=== PATIENT | female | born 1970 | race African-American/Black ===

== ENCOUNTER 2021-12-16 05:25 | Emergency (ER) | payer MEDICARE, MEDICAID ==
[~2021-12-16] VITALS: Ht 165.1 cm; Wt 62.0 kg
[2021-12-16] MEDS ORDERED: MORPHINE SULFATE 10 MG/ML CPJ IM ONE (06:00)
[2021-12-16] MEDS ORDERED: ONDANSETRON 4MG ODT PO ONE (06:00)
[2021-12-16] MEDS ORDERED: DIAZEPAM 5 MG TABLET PO ONE (06:00)
[2021-12-16] MEDS ORDERED: METH-773 MT (07:30)
[2021-12-16 08:56] VITALS: BP 152/85
== END 2021-12-16 10:40 | disposition home or self-care (01) ==
LOC: ER 05:25
DX: M54.12 Radiculopathy, cervical region (principal); I10 Essential (primary) hypertension; Z88.8 Allergy status to other drugs, medicaments and biological substances
CPT/HCPCS: 72125; 93005; 96372; 99284; J2270; Q0162

== ENCOUNTER 2025-02-24 02:23 | Emergency (ER) | payer MEDICARE, MEDICAID ==
[~2025-02-24] VITALS: Ht 172.7 cm; Wt 116.0 kg
[~2025-02-24 02:23] MED LIST: METH-773 MT
[2025-02-24 02:26] VITALS: O2SAT 99
[2025-02-24] MEDS: HALOPERIDOL LACTATE 5MG/ML VIAL IM ONE (03:14)
[2025-02-24] MEDS: LORAZEPAM 2MG/ML INJ IM ONE (03:14)
[2025-02-24 03:42] LABS: HEMATOCRIT. 43.2 % (36.0-48.0); HEMOGLOBIN. 14.8 g/dL (12.0-16.0); MEAN CORPUSCULAR HEMOGLOBIN 28.1 pg (28.0-32.0); MEAN CORPUSCULAR HGB CONC 34.2 g/dL (31.0-37.0); MEAN CORPUSCULAR VOLUME 82.1 fL (81.0-99.0); PLATELET 188 x1000/uL (130-400); RED BLOOD CELL COUNT 5.26 mill/uL (4.2-5.4); RED CELL DISTRIBUTION WIDTH 16.6 % (11.6-14.6); WHITE BLOOD COUNT 15.1 x1000/uL (4.5-11.0)
[2025-02-24 03:42] LABS: CLARITY URINE CLOUDY (CLEAR); COLOR URINE DARK YELLOW (YELLOW); GLUCOSE URINE 3+ (NEGATIVE); KETONES URINE 1+ (NEGATIVE); LEUKOCYTE ESTERASE URINE NEGATIVE (NEGATIVE); NITRITE URINE NEGATIVE (NEGATIVE); OCCULT BLOOD URINE 2+ (NEGATIVE); PH URINE 5.5 (4.5-8.0); PROTEIN URINE 3+ (NEGATIVE); SPECIFIC GRAVITY URINE 1.024 (1.005-1.030)
[2025-02-24 03:47] LABS: CHLORIDE 110 mEq/L (98-107); POTASSIUM 3.2 mEq/L (3.5-5.1); SODIUM 144 mEq/L (136-145)
[2025-02-24 03:48] LABS: CARBON DIOXIDE 21 mEq/L (21-32)
[2025-02-24 03:53] LABS: CREATININE 1.7 mg/dL (0.6-1.0); GLUCOSE 113 mg/dL (70-105); UREA NITROGEN BLOOD 16 mg/dL (9-23)
[2025-02-24 03:55] LABS: ACETAMINOPHEN < 2 ug/mL (10-30)
[2025-02-24 03:56] LABS: DIFFERENTIAL COMMENT 1
[2025-02-24 04:18] LABS: *AMPHETAMINES SCREEN URINE PRESUMPTIVE POSITIVE (NEGATIVE); *BARBITURATES SCREEN URINE NEGATIVE (NEGATIVE); *BENZODIAZEPINES SCREEN URINE NEGATIVE (NEGATIVE); *COCAINE SCREEN URINE PRESUMPTIVE POSITIVE (NEGATIVE)
[2025-02-24 04:19] LABS: CANNABINOID URINE SCREEN PRESUMPTIVE POSITIVE (NEGATIVE); ECSTASY MDMA SCREEN URINE CONF.TEST INDICATED (NEGATIVE); METHADONE URINE SCREEN NEGATIVE (NEGATIVE); OPIATES URINE SCREEN NEGATIVE (NEGATIVE); PHENCYCLIDINE URINE SCREEN NEGATIVE (NEGATIVE)
[2025-02-24 04:26] LABS: ETHANOL BLOOD < 10 mg/dL (<10)
[2025-02-24] MEDS: POTASSIUM CHLORIDE 20MEQ/PACKET PO ONE (04:59)
[2025-02-24 05:49] LABS: SQUAMOUS EPITHELIAL CELL URINE FEW /lpf (RARE/1+)
[2025-02-24 05:50] LABS: BACTERIA URINE NONE SEEN; RBC URINE 0-2 /hpf (0-2)
[2025-02-24 06:32] LABS: PLATELET ESTIMATE NORMAL
[2025-02-24 17:12] VITALS: BP 197/120; PULSE 82; RESP 18; TEMP 36.9; O2SAT 99
[2025-02-24] MEDS: AMLODIPINE 10MG TABLET PO ONE (17:13)
== END 2025-02-24 17:52 ==
LOC: ER 02:25
DX: F19.10 Other psychoactive substance abuse, uncomplicated (principal); F41.9 Anxiety disorder, unspecified; I10 Essential (primary) hypertension; M19.90 Unspecified osteoarthritis, unspecified site; F32.A Depression, unspecified; F20.9 Schizophrenia, unspecified; Z20.822 Contact with and (suspected) exposure to COVID-19; Z59.00 Homelessness unspecified; Z98.84 Bariatric surgery status; Z88.8 Allergy status to other drugs, medicaments and biological substances; Z79.899 Other long term (current) drug therapy
CPT/HCPCS: 80305; 80048; 81003; 80307; 80329; 80320; 85025; 36415; 96372; 99285; 87426; J1630; J2060; G0480

== ENCOUNTER 2025-03-18 23:04 | Emergency (ER) | payer MEDICARE, MEDICAID ==
[~2025-03-18] VITALS: Ht 165.1 cm; Wt 55.0 kg
[2025-03-18 23:08] VITALS: O2SAT 97
[2025-03-18 23:50] LABS: BASOPHILS % 0.3 % (0.0-2.0); EOSINOPHILS % 1.2 % (0.0-5.0); HEMATOCRIT. 42.7 % (36.0-48.0); LYMPHOCYTES % 13.5 % (20.0-50.0); MEAN CORPUSCULAR HEMOGLOBIN 29.1 pg (28.0-32.0); MEAN CORPUSCULAR HGB CONC 35.1 g/dL (31.0-37.0); MEAN CORPUSCULAR VOLUME 82.9 fL (81.0-99.0); MEAN PLATELET VOLUME 8.4 fl (7.4-10.4); MONOCYTES % 5.1 % (2.0-8.0); NEUTROPHILS % 79.9 % (40.0-76.0); PLATELET 198 x1000/uL (130-400); RED BLOOD CELL COUNT 5.15 mill/uL (4.2-5.4); RED CELL DISTRIBUTION WIDTH 17.3 % (11.6-14.6); WHITE BLOOD COUNT 9.6 x1000/uL (4.5-11.0)
[2025-03-18 23:58] LABS: CARBON DIOXIDE 25 mEq/L (21-32); CHLORIDE 107 mEq/L (98-107); POTASSIUM 3.7 mEq/L (3.5-5.1); SODIUM 139 mEq/L (136-145)
[2025-03-18 23:59] LABS: CALCIUM 9.8 mg/dL (8.7-10.4)
[2025-03-19 00:04] LABS: CREATININE 1.3 mg/dL (0.6-1.0); ETHANOL BLOOD < 10 mg/dL (<10); GLUCOSE 87 mg/dL (70-105); UREA NITROGEN BLOOD 14 mg/dL (9-23)
[2025-03-19 00:05] LABS: ACETAMINOPHEN < 2 ug/mL (10-30); ALANINE AMINOTRANSFERASE 22 IU/L (10-49); ALBUMIN 4.3 g/dL (3.2-4.8); ASPARTATE AMINOTRANSFERASE 38 IU/L (<34)
[2025-03-19 00:06] LABS: BILIRUBIN DIRECT 0.4 mg/dL (<=3.0); BILIRUBIN TOTAL 1.3 mg/dL (0.1-1.0); PROTEIN TOTAL 7.7 g/dL (6.0-8.3)
[2025-03-19 00:26] LABS: CLARITY URINE CLOUDY (CLEAR); COLOR URINE YELLOW (YELLOW); GLUCOSE URINE NEGATIVE (NEGATIVE); KETONES URINE 1+ (NEGATIVE); LEUKOCYTE ESTERASE URINE 1+ (NEGATIVE); NITRITE URINE NEGATIVE (NEGATIVE); OCCULT BLOOD URINE NEGATIVE (NEGATIVE); PH URINE 6.5 (4.5-8.0); PROTEIN URINE 1+ (NEGATIVE)
[2025-03-19 00:35] LABS: *AMPHETAMINES SCREEN URINE PRESUMPTIVE POSITIVE (NEGATIVE); *BARBITURATES SCREEN URINE NEGATIVE (NEGATIVE); *BENZODIAZEPINES SCREEN URINE NEGATIVE (NEGATIVE); *COCAINE SCREEN URINE PRESUMPTIVE POSITIVE (NEGATIVE); CANNABINOID URINE SCREEN PRESUMPTIVE POSITIVE (NEGATIVE); METHADONE URINE SCREEN NEGATIVE (NEGATIVE); OPIATES URINE SCREEN NEGATIVE (NEGATIVE); PHENCYCLIDINE URINE SCREEN NEGATIVE (NEGATIVE)
[2025-03-19 00:36] LABS: ECSTASY MDMA SCREEN URINE CONF.TEST INDICATED (NEGATIVE)
[2025-03-19 00:45] LABS: SQUAMOUS EPITHELIAL CELL URINE 2+ /lpf (RARE/1+)
[2025-03-19 00:49] LABS: BACTERIA URINE 1+; FINE GRANULAR CASTS URINE 0-5 /lpf
[2025-03-19] MEDS: DIPHENHYDRAMINE 25MG CAPSULE PO ONE (01:59)
[2025-03-19] MEDS: LORAZEPAM 1MG TABLET PO ONE (01:59)
[2025-03-19] MEDS: KETOROLAC 30MG/ML VIAL IM ONE (06:47)
[2025-03-19 08:39] VITALS: BP 145/90; PULSE 73; RESP 18; TEMP 36.9; O2SAT 99
== END 2025-03-19 10:45 | disposition home or self-care (01) ==
LOC: ER 23:04
DX: F15.90 Other stimulant use, unspecified, uncomplicated (principal); F31.9 Bipolar disorder, unspecified; F41.9 Anxiety disorder, unspecified; I10 Essential (primary) hypertension; M19.90 Unspecified osteoarthritis, unspecified site; Z79.899 Other long term (current) drug therapy; Z98.84 Bariatric surgery status; Z88.8 Allergy status to other drugs, medicaments and biological substances; W22.09XA Striking against other stationary object, initial encounter; Y93.89 Activity, other specified; Y92.89 Other specified places as the place of occurrence of the external cause; Y99.8 Other external cause status
CPT/HCPCS: 80076; 80305; 80048; 81003; 80307; 80329; 80320; 85025; 36415; 96372; 99285; Q0163; J1885; G0480